=== PATIENT | male | born 1955 | race Two or more races ===

== ENCOUNTER 2021-10-12 08:04 | Inpatient (IN) | payer OTHER ==
[~2021-10-12] VITALS: Ht 172.7 cm; Wt 75.7 kg
[2021-10-12] VITALS (9 sets, daily range): BP systolic 110–138; BP diastolic 64–96
[2021-10-12] MEDS ORDERED: ONDANSETRON HCL/PF 4 MG/2 ML VIAL IVP ONE (08:30)
[2021-10-12] MEDS ORDERED: IV NS 0.9% 1,000 ML BAG IV ONE ×2 (08:30→09:30)
[2021-10-12] MEDS ORDERED: LIDOCAINE VISCOUS 2% UD 15 ML UDC MM ONE (08:30)
[2021-10-12] MEDS ORDERED: MAG HYDROX/AL HYDROX/SIMETH 30 ML UDC PO ONE (08:30)
[2021-10-12] MEDS ORDERED: FAMOTIDINE/PF INJ 20 MG/2 ML VIAL IV ONE ×2 (08:30→08:36)
[2021-10-12] MEDS ORDERED: MAG HYDROX/AL HYDROX/SIMETH 30 ML UDC ONE (08:35)
[2021-10-12] MEDS ORDERED: ONDANSETRON HCL/PF 4 MG/2 ML VIAL ONE (08:35)
[2021-10-12] MEDS ORDERED: LIDOCAINE VISCOUS 2% UD 15 ML UDC ONE (08:36)
[2021-10-12 08:53] LABS: BASOPHILS % (AUTO) 0.2 % (0.0-2.0); HEMATOCRIT 39 % (39-51); HEMOGLOBIN 12.9 g/dL (13.5-17.5); LYMPHOCYTES # (AUTO) 0.8 K/uL (0.8-4.8); LYMPHOCYTES % (AUTO) 10.1 % (20.0-44.0); MEAN CORPUSCULAR HGB CONC 34 g/dl (31.0-36.0); MEAN CORPUSCULAR VOLUME 96 fL (80-96); MONOCYTES # (AUTO) 0.7 K/uL (0.1-1.30); MONOCYTES % (AUTO) 9.1 % (2.0-12.0); NEUTROPHILS # (AUTO) 6.1 K/uL (1.8-8.9); NEUTROPHILS % (AUTO) 80.6 % (43.0-81.0); PLATELET COUNT (AUTO) 139 K/uL (150-450); RED BLOOD CELL COUNT(AUTO) 4.04 MIL/uL (4.5-6.0); WHITE BLOOD COUNT (AUTO) 7.6 K/uL (4.3-11.0)
[2021-10-12] MEDS ORDERED: IOHEXOL-350 100 ML VIAL IV ONE (08:59)
[2021-10-12] MEDS ORDERED: CT SWABBABLE VALVE TRANS SET 1 EA INFUS.SET MC ONE (08:59)
[2021-10-12] MEDS ORDERED: IV NS 0.9% 250 ML IV ONE (08:59)
[2021-10-12] MEDS ORDERED: DILTIAZEM HCL 50 MG IV IV ONE (09:00)
[2021-10-12] MEDS ORDERED: MORPHINE SULFATE INJ 2 MG/ML DISP.SYRIN IV ONE (09:00)
[2021-10-12] MEDS ORDERED: DILTIAZEM HCL 25 MG IV ONE (09:02)
[2021-10-12 09:03] LABS: CALCIUM, SERUM 8.1 mg/dL (8.5-10.1); CREATININE 1.5 mg/dL (0.6-1.3); POTASSIUM 4.3 mmol/L (3.5-5.1)
[2021-10-12] MEDS ORDERED: MORPHINE SULFATE INJ 4 MG/ML DISP.SYRIN ONE (09:03)
[2021-10-12 09:09] LABS: BILIRUBIN,DIRECT 0.2 mg/dL (0.0-0.2); BILIRUBIN,TOTAL 0.9 mg/dL (0.2-1.0); TOTAL PROTEIN, SERUM 7.2 g/dL (6.4-8.2)
[2021-10-12] MEDS ORDERED: ASPI-1420 PO (09:11)
[2021-10-12] MEDS ORDERED: GABA300C PO (09:11)
[2021-10-12] MEDS ORDERED: METO50TA16 PO (09:11)
[2021-10-12] MEDS ORDERED: ACAR50TA4 PO (09:11)
[2021-10-12] MEDS ORDERED: ALLO300T2 PO (09:11)
[2021-10-12] MEDS ORDERED: GLIM4TAB37 PO (09:11)
[2021-10-12] MEDS ORDERED: MULT-981 PO (09:11)
[2021-10-12] MEDS ORDERED: ATOR20TA PO (09:11)
[2021-10-12] MEDS ORDERED: LISI-768 PO (09:11)
[2021-10-12] MEDS ORDERED: ICOS1CAP PO (09:11)
[2021-10-12] MEDS ORDERED: SITA50TA PO (09:11)
[2021-10-12] MEDS ORDERED: METF-442 PO (09:11)
[2021-10-12] MEDS ORDERED: PIPERACILLIN /TAZOBACTAM 3.375 G in IV D5W 50 ML IV ONE (09:30)
[2021-10-12] MEDS ORDERED: Medication Not On Formulary EA (Icosapent Ethyl (Vascepa) 2 CAP) PO SCH (10:00)
[2021-10-12] MEDS ORDERED: ENOXAPARIN SODIUM 80 MG/0.8 ML DISP.SYRIN SQ ONE ×2 (10:00→10:46)
[2021-10-12] MEDS ORDERED: GABAPENTIN 300 MG CAPSULE ONE (10:42)
[2021-10-12] MEDS ORDERED: ASPIRIN 81 MG TAB.CHEW ONE (10:42)
[2021-10-12] MEDS: LISINOPRIL (5MG) 5 MG TABLET PO SCH (10:58)
[2021-10-12] MEDS: ACARBOSE 50 MG TABLET PO SCH ×3 (10:58→17:44)
[2021-10-12] MEDS: GLIMEPIRIDE 4 MG TABLET PO SCH (10:58)
[2021-10-12] MEDS: GABAPENTIN 300 MG CAPSULE PO SCH ×2 (10:58→17:43)
[2021-10-12] MEDS: ASPIRIN EC 81 MG TABLET.DR PO SCH (10:58)
[2021-10-12] MEDS ORDERED: DEXAMETHASONE SOD PHOSPHATE 10 MG/ML VIAL IV STA (11:26)
[2021-10-12] MEDS ORDERED: ACETAMINOPHEN 325 MG TABLET PO PRN (11:30)
[2021-10-12] MEDS ORDERED: ALBUTEROL SULFATE 8 GM HFA.AER.AD IH PRN (11:30)
[2021-10-12] MEDS ORDERED: methylPREDNISolone SOD SUCC 125 MG/2ML VIAL IV ONE (11:30)
[2021-10-12] MEDS ORDERED: ONDANSETRON HCL/PF 4 MG/2 ML VIAL IVP PRN (11:30)
[2021-10-12] MEDS ORDERED: DEXAMETHASONE SOD PHOSPHATE 4 MG/ML VIAL ONE (11:35)
[2021-10-12 11:45] LABS: ABG BASE EXCESS -9.5 mmol/L; ABG OXYGEN SATURATION 98.1 % (92.0-98.5); ABG PCO2 55.3 mmHg (35.0-45.0); ABG PH 7.165 (7.350-7.450); ABG PO2 144.7 mmHg (75.0-100.0); COHb 0.7 % (0.5-1.5); MetHb 0.4 % (0.0-1.5); SITE, ABG Right Radial; VENT MODE, BG non rebreather
[2021-10-12] MEDS ORDERED: DEXTROSE 50%-WATER 50 ML DISP.SYRIN IV PRN (12:00)
[2021-10-12] MEDS: BLOOD SUGAR DIAGNOSTIC 1 EACH STRIP VI SCH ×3 (12:10→22:16)
[2021-10-12] MEDS ORDERED: INSULIN REGULAR, HUMAN 100 UNIT/ML 10 ML VIAL ONE (12:12)
[2021-10-12] MEDS: INSULIN REGULAR, HUMAN 100 UNIT/ML 3 ML VIAL SQ PRN (12:12)
[2021-10-12 12:32] LABS: C-REACTIVE PROTEIN 11.8 mg/dL (0.0-0.9)
[2021-10-12 16:14] LABS: ABG BASE EXCESS -3.7 mmol/L; ABG OXYGEN SATURATION 96.8 % (92.0-98.5); ABG PCO2 42.7 mmHg (35.0-45.0); ABG PH 7.332 (7.350-7.450); ABG PO2 94.2 mmHg (75.0-100.0); AaDO2 141.9 mmHg; COHb 0.5 % (0.5-1.5); MetHb 0.3 % (0.0-1.5); SITE, ABG Right Radial
[2021-10-12] MEDS: *INSULIN REGULAR(HUMULIN R)HUM 100 UNIT/ML VIAL SQ PRN ×2 (18:12→22:15)
[2021-10-12] MEDS: ATORVASTATIN 10 MG TABLET PO SCH (21:54)
[2021-10-12] MEDS: ENOXAPARIN SODIUM 80 MG/0.8 ML DISP.SYRIN SQ SCH (21:55)
[2021-10-12] MEDS: IV NS 0.9% 1,000 ML IV PRN (22:30)
[2021-10-13] VITALS (18 sets, daily range): BP systolic 115–158; BP diastolic 61–100
[2021-10-13 05:40] LABS: BASOPHILS % (AUTO) 0.1 % (0.0-2.0); HEMATOCRIT 38 % (39-51); HEMOGLOBIN 12.9 g/dL (13.5-17.5); LYMPHOCYTES # (AUTO) 0.9 K/uL (0.8-4.8); LYMPHOCYTES % (AUTO) 15.5 % (20.0-44.0); MEAN CORPUSCULAR HGB CONC 34 g/dl (31.0-36.0); MEAN CORPUSCULAR VOLUME 95 fL (80-96); MONOCYTES # (AUTO) 0.4 K/uL (0.1-1.30); MONOCYTES % (AUTO) 6.8 % (2.0-12.0); NEUTROPHILS # (AUTO) 4.5 K/uL (1.8-8.9); NEUTROPHILS % (AUTO) 77.6 % (43.0-81.0); PLATELET COUNT (AUTO) 128 K/uL (150-450); RED BLOOD CELL COUNT(AUTO) 4.02 MIL/uL (4.5-6.0); WHITE BLOOD COUNT (AUTO) 5.8 K/uL (4.3-11.0)
[2021-10-13 06:05] LABS: ABG BASE EXCESS -3.3 mmol/L; ABG PCO2 37.5 mmHg (35.0-45.0); ABG PH 7.374 (7.350-7.450); AaDO2 53.8 mmHg; COHb 0.4 % (0.5-1.5); MetHb 0.3 % (0.0-1.5); O2Hb 97.3 % (94.0-97.0); SITE, ABG Right Radial
[2021-10-13 06:35] LABS: ALANINE AMINOTRANSFERASE 40 U/L (12-78); ALBUMIN 3.3 g/dL (3.4-5.0); ALKALINE PHOSPHATASE 66 U/L (46-116); ASPARTATE AMINOTRANSFERASE 36 U/L (15-37); BILIRUBIN,TOTAL 0.6 mg/dL (0.2-1.0); CALCIUM, SERUM 7.7 mg/dL (8.5-10.1); CARBON DIOXIDE 23 mmol/L (21-32); CHLORIDE 103 mmol/L (98-107); CREATININE 1.2 mg/dL (0.6-1.3); GLUCOSE 198 mg/dL (74-106); PHOSPHORUS 2.6 mg/dL (2.5-4.9); POTASSIUM 4.7 mmol/L (3.5-5.1); SODIUM SERUM 136 mmol/L (136-145); TOTAL PROTEIN, SERUM 6.4 g/dL (6.4-8.2); UREA NITROGEN, BLOOD 19 mg/dL (7-18)
[2021-10-13] MEDS: ACARBOSE 50 MG TABLET PO SCH ×3 (08:23→18:29)
[2021-10-13] MEDS: GABAPENTIN 300 MG CAPSULE PO SCH ×2 (08:36→18:29)
[2021-10-13] MEDS: DEXAMETHASONE SOD PHOSPHATE 4 MG/ML VIAL IV SCH (08:36)
[2021-10-13] MEDS: LISINOPRIL (5MG) 5 MG TABLET PO SCH (08:36)
[2021-10-13] MEDS: ALLOPURINOL 100 MG TABLET PO SCH (08:36)
[2021-10-13] MEDS: ASPIRIN EC 81 MG TABLET.DR PO SCH (08:36)
[2021-10-13] MEDS: LINAGLIPTIN 5 MG TABLET PO SCH (08:36)
[2021-10-13] MEDS: GLIMEPIRIDE 4 MG TABLET PO SCH (08:36)
[2021-10-13] MEDS: BLOOD SUGAR DIAGNOSTIC 1 EACH STRIP VI SCH ×4 (08:37→21:33)
[2021-10-13] MEDS: *INSULIN REGULAR(HUMULIN R)HUM 100 UNIT/ML VIAL SQ PRN ×2 (08:39→11:52)
[2021-10-13] MEDS: ENOXAPARIN SODIUM 80 MG/0.8 ML DISP.SYRIN SQ SCH ×2 (08:39→21:29)
[2021-10-13] MEDS: IV NS 0.9% 1,000 ML IV PRN ×2 (09:34→21:32)
[2021-10-13] MEDS: INSULIN REGULAR, HUMAN 100 UNIT/ML 3 ML VIAL SQ PRN (18:42)
[2021-10-13] MEDS: ATORVASTATIN 10 MG TABLET PO SCH (21:29)
[2021-10-14] VITALS: BP 134/79
[2021-10-14 04:00] VITALS: BP 136/76
[2021-10-14 06:25] LABS: BASOPHILS % (AUTO) 0.1 % (0.0-2.0); HEMATOCRIT 38 % (39-51); HEMOGLOBIN 12.9 g/dL (13.5-17.5); LYMPHOCYTES # (AUTO) 1.1 K/uL (0.8-4.8); LYMPHOCYTES % (AUTO) 9.9 % (20.0-44.0); MEAN CORPUSCULAR HGB CONC 34 g/dl (31.0-36.0); MEAN CORPUSCULAR VOLUME 94 fL (80-96); MONOCYTES # (AUTO) 0.6 K/uL (0.1-1.30); MONOCYTES % (AUTO) 5.8 % (2.0-12.0); NEUTROPHILS # (AUTO) 8.9 K/uL (1.8-8.9); NEUTROPHILS % (AUTO) 84.2 % (43.0-81.0); PLATELET COUNT (AUTO) 148 K/uL (150-450); RED BLOOD CELL COUNT(AUTO) 4.01 MIL/uL (4.5-6.0); WHITE BLOOD COUNT (AUTO) 10.6 K/uL (4.3-11.0)
[2021-10-14 06:59] LABS: CALCIUM, SERUM 7.8 mg/dL (8.5-10.1); CREATININE 1.2 mg/dL (0.6-1.3); POTASSIUM 4.5 mmol/L (3.5-5.1)
[2021-10-14 08:00] VITALS: BP 145/83
[2021-10-14] MEDS: BLOOD SUGAR DIAGNOSTIC 1 EACH STRIP VI SCH ×4 (08:21→22:06)
[2021-10-14] MEDS: ASPIRIN EC 81 MG TABLET.DR PO SCH (09:45)
[2021-10-14] MEDS: DEXAMETHASONE SOD PHOSPHATE 4 MG/ML VIAL IV SCH (09:45)
[2021-10-14] MEDS: LINAGLIPTIN 5 MG TABLET PO SCH (09:45)
[2021-10-14] MEDS: ALLOPURINOL 100 MG TABLET PO SCH (09:45)
[2021-10-14] MEDS: ACARBOSE 50 MG TABLET PO SCH ×3 (09:46→16:30)
[2021-10-14] MEDS: GLIMEPIRIDE 4 MG TABLET PO SCH (09:46)
[2021-10-14] MEDS: GABAPENTIN 300 MG CAPSULE PO SCH ×2 (09:46→16:31)
[2021-10-14] MEDS: LISINOPRIL (5MG) 5 MG TABLET PO SCH (09:46)
[2021-10-14] MEDS: ENOXAPARIN SODIUM 80 MG/0.8 ML DISP.SYRIN SQ SCH (09:49)
[2021-10-14] MEDS: *INSULIN REGULAR(HUMULIN R)HUM 100 UNIT/ML VIAL SQ PRN ×4 (09:50→22:08)
[2021-10-14 12:00] VITALS: BP 120/92
[2021-10-14 16:00] VITALS: BP 133/84
[2021-10-14] MEDS: METOPROLOL TARTRATE 25 MG TABLET PO SCH ×2 (16:31→22:06)
[2021-10-14 20:00] VITALS: BP 129/92
[2021-10-14] MEDS: ATORVASTATIN 10 MG TABLET PO SCH (22:06)
[2021-10-14] MEDS: IV NS 0.9% 1,000 ML IV PRN (22:07)
[2021-10-15] VITALS: BP 132/70
[2021-10-15 04:00] VITALS: BP 145/89
[2021-10-15] MEDS: IV NS 0.9% 1,000 ML IV PRN ×2 (06:36→18:02)
[2021-10-15 08:00] VITALS: BP 143/92
[2021-10-15] MEDS: GLIMEPIRIDE 4 MG TABLET PO SCH (08:00)
[2021-10-15] MEDS: DEXAMETHASONE SOD PHOSPHATE 4 MG/ML VIAL IV SCH (08:01)
[2021-10-15] MEDS: ASPIRIN EC 81 MG TABLET.DR PO SCH (08:01)
[2021-10-15] MEDS: LINAGLIPTIN 5 MG TABLET PO SCH (08:01)
[2021-10-15] MEDS: GABAPENTIN 300 MG CAPSULE PO SCH ×2 (08:02→16:58)
[2021-10-15] MEDS: METOPROLOL TARTRATE 25 MG TABLET PO SCH ×2 (08:02→20:37)
[2021-10-15] MEDS: LISINOPRIL (5MG) 5 MG TABLET PO SCH (08:02)
[2021-10-15] MEDS: ACARBOSE 50 MG TABLET PO SCH ×3 (08:03→16:58)
[2021-10-15] MEDS: ALLOPURINOL 100 MG TABLET PO SCH (08:13)
[2021-10-15] MEDS: BLOOD SUGAR DIAGNOSTIC 1 EACH STRIP VI SCH ×4 (08:13→21:18)
[2021-10-15] MEDS ORDERED: LACTULOSE 10 G/15 ML UDC (PYXIS) PO ONE (11:00)
[2021-10-15] MEDS: INSULIN REGULAR, HUMAN 100 UNIT/ML 3 ML VIAL SQ PRN ×2 (11:48→17:39)
[2021-10-15 12:00] VITALS: BP 141/86
[2021-10-15] MEDS: CEFTRIAXONE 1 G in IV D5W 50 ML IV SCH (12:08)
[2021-10-15] MEDS: AZITHROMYCIN 500 MG in IV D5W 250 ML IV SCH (13:10)
[2021-10-15 16:00] VITALS: BP 144/90
[2021-10-15 20:00] VITALS: BP 132/88
[2021-10-15] MEDS ORDERED: REMDESIVIR (CHARGED) 200 MG, *LOADING DOSE 1 EA in IV NS 0.9% 210 ML IV ONE (20:00)
[2021-10-15] MEDS: ENOXAPARIN SODIUM 80 MG/0.8 ML DISP.SYRIN SQ SCH (20:12)
[2021-10-15] MEDS: ATORVASTATIN 10 MG TABLET PO SCH (21:18)
[2021-10-15] MEDS: *INSULIN REGULAR(HUMULIN R)HUM 100 UNIT/ML VIAL SQ PRN (21:20)
[2021-10-16] VITALS: BP 129/75
[2021-10-16 04:00] VITALS: BP 140/77
[2021-10-16 06:25] LABS: HEMATOCRIT 34 % (39-51); HEMOGLOBIN 11.7 g/dL (13.5-17.5); LYMPHOCYTES # (AUTO) 0.6 K/uL (0.8-4.8); LYMPHOCYTES % (AUTO) 8.1 % (20.0-44.0); MEAN CORPUSCULAR HGB CONC 35 g/dl (31.0-36.0); MEAN CORPUSCULAR VOLUME 94 fL (80-96); MONOCYTES # (AUTO) 0.6 K/uL (0.1-1.30); NEUTROPHILS # (AUTO) 6.2 K/uL (1.8-8.9); NEUTROPHILS % (AUTO) 83.9 % (43.0-81.0); PLATELET COUNT (AUTO) 141 K/uL (150-450); RED BLOOD CELL COUNT(AUTO) 3.61 MIL/uL (4.5-6.0); WHITE BLOOD COUNT (AUTO) 7.4 K/uL (4.3-11.0)
[2021-10-16 06:41] LABS: ALBUMIN 3.1 g/dL (3.4-5.0); BILIRUBIN,DIRECT 0.4 mg/dL (0.0-0.2); CALCIUM, SERUM 7.5 mg/dL (8.5-10.1); POTASSIUM 4.3 mmol/L (3.5-5.1); TOTAL PROTEIN, SERUM 6.3 g/dL (6.4-8.2)
[2021-10-16] MEDS: BLOOD SUGAR DIAGNOSTIC 1 EACH STRIP VI SCH ×4 (07:43→23:01)
[2021-10-16 08:00] VITALS: BP 135/82
[2021-10-16] MEDS: GLIMEPIRIDE 4 MG TABLET PO SCH (08:06)
[2021-10-16] MEDS: LINAGLIPTIN 5 MG TABLET PO SCH (08:06)
[2021-10-16] MEDS: ACARBOSE 50 MG TABLET PO SCH ×3 (08:06→17:35)
[2021-10-16] MEDS: ASPIRIN EC 81 MG TABLET.DR PO SCH (08:07)
[2021-10-16] MEDS: DEXAMETHASONE SOD PHOSPHATE 4 MG/ML VIAL IV SCH (08:07)
[2021-10-16] MEDS: GABAPENTIN 300 MG CAPSULE PO SCH ×2 (08:07→17:35)
[2021-10-16] MEDS: ENOXAPARIN SODIUM 80 MG/0.8 ML DISP.SYRIN SQ SCH ×2 (08:15→22:03)
[2021-10-16] MEDS: METOPROLOL TARTRATE 25 MG TABLET PO SCH (08:16)
[2021-10-16] MEDS: LISINOPRIL (5MG) 5 MG TABLET PO SCH (08:16)
[2021-10-16] MEDS: ALLOPURINOL 100 MG TABLET PO SCH (08:17)
[2021-10-16 12:00] VITALS: BP 140/93
[2021-10-16] MEDS: CEFTRIAXONE 1 G in IV D5W 50 ML IV SCH (12:14)
[2021-10-16] MEDS: *INSULIN REGULAR(HUMULIN R)HUM 100 UNIT/ML VIAL SQ PRN ×3 (12:17→23:03)
[2021-10-16] MEDS: AZITHROMYCIN 500 MG in IV D5W 250 ML IV SCH (13:08)
[2021-10-16 16:00] VITALS: BP 134/78
[2021-10-16] MEDS: DILTIAZEM HCL 30 MG TABLET PO SCH (17:52)
[2021-10-16] MEDS: REMDESIVIR (CHARGED) 100 MG in IV NS 0.9% 100 ML IV SCH (19:41)
[2021-10-16 20:00] VITALS: BP 118/68
[2021-10-16] MEDS ORDERED: METOPROLOL TARTRATE 25 MG TABLET PO SCH (21:00)
[2021-10-16] MEDS: ATORVASTATIN 10 MG TABLET PO SCH (21:58)
[2021-10-16] MEDS: POLYETHYLENE GLYCOL 3350 17 GM POWD.PACK PO SCH (22:00)
[2021-10-17] VITALS (7 sets, daily range): BP systolic 105–127; BP diastolic 67–77
[2021-10-17] MEDS: DILTIAZEM HCL 30 MG TABLET PO SCH ×4 (00:45→17:57)
[2021-10-17] MEDS: BENZONATATE 100 MG CAPSULE PO PRN (05:35)
[2021-10-17 06:09] LABS: BASOPHILS % (AUTO) 0.1 % (0.0-2.0); HEMATOCRIT 36 % (39-51); HEMOGLOBIN 12.4 g/dL (13.5-17.5); LYMPHOCYTES # (AUTO) 0.5 K/uL (0.8-4.8); LYMPHOCYTES % (AUTO) 7.8 % (20.0-44.0); MEAN CORPUSCULAR HGB CONC 34 g/dl (31.0-36.0); MEAN CORPUSCULAR VOLUME 95 fL (80-96); MONOCYTES # (AUTO) 0.6 K/uL (0.1-1.30); MONOCYTES % (AUTO) 7.9 % (2.0-12.0); NEUTROPHILS # (AUTO) 5.9 K/uL (1.8-8.9); NEUTROPHILS % (AUTO) 84.2 % (43.0-81.0); PLATELET COUNT (AUTO) 158 K/uL (150-450); RED BLOOD CELL COUNT(AUTO) 3.83 MIL/uL (4.5-6.0)
[2021-10-17 06:35] LABS: ALBUMIN 2.8 g/dL (3.4-5.0); BILIRUBIN,DIRECT 0.3 mg/dL (0.0-0.2); TOTAL PROTEIN, SERUM 6.3 g/dL (6.4-8.2)
[2021-10-17 06:37] LABS: CALCIUM, SERUM 7.9 mg/dL (8.5-10.1); CREATININE 1.1 mg/dL (0.6-1.3); POTASSIUM 4.9 mmol/L (3.5-5.1)
[2021-10-17] MEDS: IV NS 0.9% 1,000 ML IV PRN (07:45)
[2021-10-17] MEDS: BLOOD SUGAR DIAGNOSTIC 1 EACH STRIP VI SCH ×4 (08:23→22:21)
[2021-10-17] MEDS: ALLOPURINOL 100 MG TABLET PO SCH (08:45)
[2021-10-17] MEDS: ACARBOSE 50 MG TABLET PO SCH ×3 (08:45→17:57)
[2021-10-17] MEDS: ASPIRIN EC 81 MG TABLET.DR PO SCH (08:45)
[2021-10-17] MEDS: LISINOPRIL (5MG) 5 MG TABLET PO SCH (08:45)
[2021-10-17] MEDS: DEXAMETHASONE SOD PHOSPHATE 4 MG/ML VIAL IV SCH (08:46)
[2021-10-17] MEDS: GABAPENTIN 300 MG CAPSULE PO SCH ×2 (08:46→17:56)
[2021-10-17] MEDS: LINAGLIPTIN 5 MG TABLET PO SCH (08:46)
[2021-10-17] MEDS: ENOXAPARIN SODIUM 80 MG/0.8 ML DISP.SYRIN SQ SCH ×2 (08:47→20:19)
[2021-10-17] MEDS: METOPROLOL TARTRATE 50 MG TABLET PO SCH ×2 (08:58→20:58)
[2021-10-17] MEDS: INSULIN REGULAR, HUMAN 100 UNIT/ML 3 ML VIAL SQ PRN ×3 (09:00→18:11)
[2021-10-17] MEDS: GLIMEPIRIDE 4 MG TABLET PO SCH (10:17)
[2021-10-17] MEDS: CEFTRIAXONE 1 G in IV D5W 50 ML IV SCH (11:37)
[2021-10-17] MEDS: AZITHROMYCIN 500 MG in IV D5W 250 ML IV SCH (12:08)
[2021-10-17] MEDS: REMDESIVIR (CHARGED) 100 MG in IV NS 0.9% 100 ML IV SCH (19:36)
[2021-10-17] MEDS: POLYETHYLENE GLYCOL 3350 17 GM POWD.PACK PO SCH (21:33)
[2021-10-17] MEDS: ATORVASTATIN 10 MG TABLET PO SCH (21:33)
[2021-10-17] MEDS: *INSULIN REGULAR(HUMULIN R)HUM 100 UNIT/ML VIAL SQ PRN (22:31)
[2021-10-18] VITALS: BP 127/72
[2021-10-18] MEDS: DILTIAZEM HCL 30 MG TABLET PO SCH ×4 (00:15→17:15)
[2021-10-18 04:00] VITALS: BP 133/85
[2021-10-18 06:47] LABS: BASOPHILS % (AUTO) 0.1 % (0.0-2.0); HEMATOCRIT 36 % (39-51); LYMPHOCYTES # (AUTO) 0.6 K/uL (0.8-4.8); LYMPHOCYTES % (AUTO) 7.3 % (20.0-44.0); MEAN CORPUSCULAR HGB CONC 34 g/dl (31.0-36.0); MEAN CORPUSCULAR VOLUME 93 fL (80-96); MONOCYTES # (AUTO) 0.6 K/uL (0.1-1.30); MONOCYTES % (AUTO) 7.3 % (2.0-12.0); NEUTROPHILS # (AUTO) 6.9 K/uL (1.8-8.9); NEUTROPHILS % (AUTO) 85.3 % (43.0-81.0); PLATELET COUNT (AUTO) 214 K/uL (150-450); RED BLOOD CELL COUNT(AUTO) 3.81 MIL/uL (4.5-6.0); WHITE BLOOD COUNT (AUTO) 8.1 K/uL (4.3-11.0)
[2021-10-18 07:16] LABS: ALBUMIN 2.9 g/dL (3.4-5.0); BILIRUBIN,DIRECT 0.4 mg/dL (0.0-0.2); BILIRUBIN,TOTAL 0.9 mg/dL (0.2-1.0); CALCIUM, SERUM 7.6 mg/dL (8.5-10.1); CREATININE 1.1 mg/dL (0.6-1.3); POTASSIUM 4.2 mmol/L (3.5-5.1); TOTAL PROTEIN, SERUM 6.2 g/dL (6.4-8.2)
[2021-10-18 08:00] VITALS: BP 129/90
[2021-10-18] MEDS: BLOOD SUGAR DIAGNOSTIC 1 EACH STRIP VI SCH ×4 (08:14→21:28)
[2021-10-18] MEDS: GABAPENTIN 300 MG CAPSULE PO SCH ×2 (08:32→17:15)
[2021-10-18] MEDS: LINAGLIPTIN 5 MG TABLET PO SCH (08:32)
[2021-10-18] MEDS: GLIMEPIRIDE 4 MG TABLET PO SCH (08:33)
[2021-10-18] MEDS: ALLOPURINOL 100 MG TABLET PO SCH (08:33)
[2021-10-18] MEDS: ACARBOSE 50 MG TABLET PO SCH ×3 (08:33→17:15)
[2021-10-18] MEDS: BENZONATATE 100 MG CAPSULE PO PRN ×2 (08:33→17:15)
[2021-10-18] MEDS: METOPROLOL TARTRATE 50 MG TABLET PO SCH ×2 (08:34→20:39)
[2021-10-18] MEDS: ASPIRIN EC 81 MG TABLET.DR PO SCH (08:34)
[2021-10-18] MEDS: LISINOPRIL (5MG) 5 MG TABLET PO SCH (08:34)
[2021-10-18] MEDS: DEXAMETHASONE SOD PHOSPHATE 4 MG/ML VIAL IV SCH (08:36)
[2021-10-18] MEDS: ENOXAPARIN SODIUM 80 MG/0.8 ML DISP.SYRIN SQ SCH ×2 (08:37→20:38)
[2021-10-18] MEDS: *INSULIN REGULAR(HUMULIN R)HUM 100 UNIT/ML VIAL SQ PRN ×4 (08:39→21:28)
[2021-10-18] MEDS: IV NS 0.9% 1,000 ML IV PRN (09:25)
[2021-10-18 12:00] VITALS: BP 130/87
[2021-10-18] MEDS: CEFTRIAXONE 1 G in IV D5W 50 ML IV SCH (12:43)
[2021-10-18] MEDS: AZITHROMYCIN 500 MG in IV D5W 250 ML IV SCH (13:44)
[2021-10-18 16:00] VITALS: BP 130/80
[2021-10-18] MEDS: REMDESIVIR (CHARGED) 100 MG in IV NS 0.9% 100 ML IV SCH (19:54)
[2021-10-18 20:00] VITALS: BP 110/69
[2021-10-18] MEDS: ATORVASTATIN 10 MG TABLET PO SCH (21:14)
[2021-10-18] MEDS: POLYETHYLENE GLYCOL 3350 17 GM POWD.PACK PO SCH (21:14)
[2021-10-19] VITALS: BP 120/71
[2021-10-19] MEDS: DILTIAZEM HCL 30 MG TABLET PO SCH ×4 (00:04→18:07)
[2021-10-19] MEDS: TEMAZEPAM 7.5 MG CAPSULE PO PRN (00:04)
[2021-10-19 04:00] VITALS: BP 122/73
[2021-10-19] MEDS: BLOOD SUGAR DIAGNOSTIC 1 EACH STRIP VI SCH ×4 (07:45→22:15)
[2021-10-19 08:00] VITALS: BP 126/78
[2021-10-19] MEDS: ALLOPURINOL 100 MG TABLET PO SCH (08:59)
[2021-10-19] MEDS: ACARBOSE 50 MG TABLET PO SCH ×3 (08:59→18:06)
[2021-10-19] MEDS: LINAGLIPTIN 5 MG TABLET PO SCH (08:59)
[2021-10-19] MEDS: GABAPENTIN 300 MG CAPSULE PO SCH ×2 (08:59→18:11)
[2021-10-19] MEDS: GLIMEPIRIDE 4 MG TABLET PO SCH (08:59)
[2021-10-19] MEDS: ASPIRIN EC 81 MG TABLET.DR PO SCH (08:59)
[2021-10-19] MEDS: LISINOPRIL (5MG) 5 MG TABLET PO SCH (09:00)
[2021-10-19] MEDS: METOPROLOL TARTRATE 50 MG TABLET PO SCH ×2 (09:00→20:20)
[2021-10-19] MEDS: DEXAMETHASONE SOD PHOSPHATE 10 MG/ML VIAL IV SCH (09:02)
[2021-10-19] MEDS: ENOXAPARIN SODIUM 80 MG/0.8 ML DISP.SYRIN SQ SCH ×2 (09:03→20:22)
[2021-10-19] MEDS: *INSULIN REGULAR(HUMULIN R)HUM 100 UNIT/ML VIAL SQ PRN ×4 (09:05→22:37)
[2021-10-19 09:39] LABS: BASOPHILS % (AUTO) 0.1 % (0.0-2.0); HEMATOCRIT 32 % (39-51); HEMOGLOBIN 10.8 g/dL (13.5-17.5); LYMPHOCYTES # (AUTO) 0.5 K/uL (0.8-4.8); LYMPHOCYTES % (AUTO) 6.5 % (20.0-44.0); MEAN CORPUSCULAR HGB CONC 34 g/dl (31.0-36.0); MEAN CORPUSCULAR VOLUME 94 fL (80-96); MONOCYTES # (AUTO) 0.6 K/uL (0.1-1.30); MONOCYTES % (AUTO) 7.6 % (2.0-12.0); NEUTROPHILS # (AUTO) 6.8 K/uL (1.8-8.9); NEUTROPHILS % (AUTO) 85.8 % (43.0-81.0); PLATELET COUNT (AUTO) 265 K/uL (150-450); RED BLOOD CELL COUNT(AUTO) 3.36 MIL/uL (4.5-6.0); WHITE BLOOD COUNT (AUTO) 7.9 K/uL (4.3-11.0)
[2021-10-19 10:23] LABS: ALBUMIN 2.7 g/dL (3.4-5.0); BILIRUBIN,DIRECT 0.2 mg/dL (0.0-0.2); BILIRUBIN,TOTAL 0.9 mg/dL (0.2-1.0); CALCIUM, SERUM 7.7 mg/dL (8.5-10.1); POTASSIUM 4.8 mmol/L (3.5-5.1); TOTAL PROTEIN, SERUM 5.9 g/dL (6.4-8.2)
[2021-10-19] MEDS: CEFTRIAXONE 1 G in IV D5W 50 ML IV SCH (11:19)
[2021-10-19 12:00] VITALS: BP 143/85
[2021-10-19] MEDS: AZITHROMYCIN 500 MG in IV D5W 250 ML IV SCH (12:43)
[2021-10-19 16:00] VITALS: BP 137/78
[2021-10-19 20:00] VITALS: BP 142/69
[2021-10-19] MEDS: REMDESIVIR (CHARGED) 100 MG in IV NS 0.9% 100 ML IV SCH (20:10)
[2021-10-19] MEDS: ATORVASTATIN 10 MG TABLET PO SCH (22:03)
[2021-10-19] MEDS: POLYETHYLENE GLYCOL 3350 17 GM POWD.PACK PO SCH (22:04)
[2021-10-20] VITALS: BP 129/75
[2021-10-20] MEDS: DILTIAZEM HCL 30 MG TABLET PO SCH ×4 (00:01→17:01)
[2021-10-20] MEDS: TEMAZEPAM 7.5 MG CAPSULE PO PRN (00:01)
[2021-10-20 04:00] VITALS: BP 119/76
[2021-10-20 07:22] LABS: BASOPHILS % (AUTO) 0.1 % (0.0-2.0); HEMATOCRIT 33 % (39-51); HEMOGLOBIN 11.5 g/dL (13.5-17.5); LYMPHOCYTES # (AUTO) 0.5 K/uL (0.8-4.8); LYMPHOCYTES % (AUTO) 5.9 % (20.0-44.0); MEAN CORPUSCULAR HGB CONC 35 g/dl (31.0-36.0); MEAN CORPUSCULAR VOLUME 93 fL (80-96); MONOCYTES # (AUTO) 0.6 K/uL (0.1-1.30); MONOCYTES % (AUTO) 6.3 % (2.0-12.0); NEUTROPHILS # (AUTO) 8.1 K/uL (1.8-8.9); NEUTROPHILS % (AUTO) 87.7 % (43.0-81.0); PLATELET COUNT (AUTO) 271 K/uL (150-450); WHITE BLOOD COUNT (AUTO) 9.3 K/uL (4.3-11.0)
[2021-10-20] MEDS: BLOOD SUGAR DIAGNOSTIC 1 EACH STRIP VI SCH ×4 (07:45→22:54)
[2021-10-20] MEDS: *INSULIN REGULAR(HUMULIN R)HUM 100 UNIT/ML VIAL SQ PRN (07:47)
[2021-10-20] MEDS: INSULIN REGULAR, HUMAN 100 UNIT/ML 3 ML VIAL SQ PRN ×4 (07:57→22:54)
[2021-10-20 08:00] VITALS: BP 141/83
[2021-10-20 08:25] LABS: CALCIUM, SERUM 8.4 mg/dL (8.5-10.1); CREATININE 1.1 mg/dL (0.6-1.3); POTASSIUM 4.4 mmol/L (3.5-5.1)
[2021-10-20] MEDS: LISINOPRIL (5MG) 5 MG TABLET PO SCH (08:43)
[2021-10-20] MEDS: GABAPENTIN 300 MG CAPSULE PO SCH ×2 (08:43→16:04)
[2021-10-20] MEDS: ACARBOSE 50 MG TABLET PO SCH ×3 (08:43→16:04)
[2021-10-20] MEDS: LINAGLIPTIN 5 MG TABLET PO SCH (08:43)
[2021-10-20] MEDS: ALLOPURINOL 100 MG TABLET PO SCH (08:43)
[2021-10-20] MEDS: ASPIRIN EC 81 MG TABLET.DR PO SCH (08:43)
[2021-10-20] MEDS: DEXAMETHASONE SOD PHOSPHATE 10 MG/ML VIAL IV SCH (08:43)
[2021-10-20] MEDS: GLIMEPIRIDE 4 MG TABLET PO SCH (08:43)
[2021-10-20] MEDS: ENOXAPARIN SODIUM 80 MG/0.8 ML DISP.SYRIN SQ SCH ×2 (08:44→21:38)
[2021-10-20] MEDS: METOPROLOL TARTRATE 50 MG TABLET PO SCH ×2 (08:44→21:41)
[2021-10-20 12:00] VITALS: BP 165/69
[2021-10-20 16:00] VITALS: BP 126/71
[2021-10-20 20:00] VITALS: BP 124/76
[2021-10-20] MEDS: ATORVASTATIN 10 MG TABLET PO SCH (21:38)
[2021-10-20] MEDS: POLYETHYLENE GLYCOL 3350 17 GM POWD.PACK PO SCH (21:41)
[2021-10-21] VITALS (7 sets, daily range): BP systolic 128–146; BP diastolic 70–88
[2021-10-21] MEDS: TEMAZEPAM 7.5 MG CAPSULE PO PRN (00:18)
[2021-10-21] MEDS: DILTIAZEM HCL 30 MG TABLET PO SCH ×4 (00:18→17:17)
[2021-10-21 06:32] LABS: BASOPHILS % (AUTO) 0.1 % (0.0-2.0); EOSINOPHILS % (AUTO) 0.1 % (0.0-6.0); HEMATOCRIT 37 % (39-51); HEMOGLOBIN 12.4 g/dL (13.5-17.5); LYMPHOCYTES # (AUTO) 0.6 K/uL (0.8-4.8); LYMPHOCYTES % (AUTO) 4.9 % (20.0-44.0); MEAN CORPUSCULAR HGB CONC 33 g/dl (31.0-36.0); MEAN CORPUSCULAR VOLUME 93 fL (80-96); MONOCYTES # (AUTO) 0.6 K/uL (0.1-1.30); MONOCYTES % (AUTO) 5.6 % (2.0-12.0); NEUTROPHILS # (AUTO) 10.1 K/uL (1.8-8.9); NEUTROPHILS % (AUTO) 89.3 % (43.0-81.0); PLATELET COUNT (AUTO) 297 K/uL (150-450); RED BLOOD CELL COUNT(AUTO) 3.98 MIL/uL (4.5-6.0); WHITE BLOOD COUNT (AUTO) 11.3 K/uL (4.3-11.0)
[2021-10-21 06:37] LABS: CALCIUM, SERUM 8.9 mg/dL (8.5-10.1); CREATININE 1.1 mg/dL (0.6-1.3); POTASSIUM 4.5 mmol/L (3.5-5.1)
[2021-10-21] MEDS: BLOOD SUGAR DIAGNOSTIC 1 EACH STRIP VI SCH ×3 (08:24→17:24)
[2021-10-21] MEDS: INSULIN REGULAR, HUMAN 100 UNIT/ML 3 ML VIAL SQ PRN ×3 (08:26→17:25)
[2021-10-21] MEDS: ENOXAPARIN SODIUM 80 MG/0.8 ML DISP.SYRIN SQ SCH (08:27)
[2021-10-21] MEDS: ACARBOSE 50 MG TABLET PO SCH ×3 (08:28→17:17)
[2021-10-21] MEDS: LISINOPRIL (5MG) 5 MG TABLET PO SCH (08:29)
[2021-10-21] MEDS: GABAPENTIN 300 MG CAPSULE PO SCH ×2 (08:29→17:17)
[2021-10-21] MEDS: GLIMEPIRIDE 4 MG TABLET PO SCH (08:29)
[2021-10-21] MEDS: ASPIRIN EC 81 MG TABLET.DR PO SCH (08:29)
[2021-10-21] MEDS: METOPROLOL TARTRATE 50 MG TABLET PO SCH (08:29)
[2021-10-21] MEDS: DEXAMETHASONE SOD PHOSPHATE 10 MG/ML VIAL IV SCH (08:29)
[2021-10-21] MEDS: ALLOPURINOL 100 MG TABLET PO SCH (08:29)
[2021-10-21] MEDS: LINAGLIPTIN 5 MG TABLET PO SCH (08:29)
[2021-10-21] MEDS ORDERED: PANTOPRAZOLE 40 MG/PACK PACK PO SCH (09:00)
[2021-10-21] MEDS ORDERED: DILT30TA14 PO (11:56)
[2021-10-21] MEDS ORDERED: METO50TA16 PO (11:56)
[2021-10-21] MEDS ORDERED: ALBU18HF2 IH (11:56)
[2021-10-21] MEDS ORDERED: BENZ-38 PO (11:56)
[2021-10-21] MEDS ORDERED: DEXA10VI2 PO (11:56)
[2021-10-21] MEDS ORDERED: PANT40SU2 PO (11:56)
[2021-10-21] MEDS ORDERED: APIX5TAB PO (12:06)
== END 2021-10-21 18:15 | disposition home or self-care (01) | DRG 177 ==
LOC: ER 08:19 → TRANSITION 10:52 → ICU 13:48 → TELE1 10-13 17:35
PROVIDERS: ADMIT Nurse Practitioner Acute Care; ATTEND Nurse Practitioner Acute Care
PROC: 5A09357 Assistance with Respiratory Ventilation, Less than 24 Consecutive Hours, Continuous Positive Airway Pressure (ICD-10-PCS; principal; 2021-10-12)
PROC: XW033E5 Introduction of Remdesivir Anti-infective into Peripheral Vein, Percutaneous Approach, New Technology Group 5 (ICD-10-PCS; 2021-10-12)
PROC: 05H933Z Insertion of Infusion Device into Right Brachial Vein, Percutaneous Approach (ICD-10-PCS; 2021-10-18)
DX: U07.1 COVID-19 (principal); J96.01 Acute respiratory failure with hypoxia; N17.0 Acute kidney failure with tubular necrosis; J12.82 Pneumonia due to coronavirus disease 2019; I82.220 Acute embolism and thrombosis of inferior vena cava; I82.221 Chronic embolism and thrombosis of inferior vena cava; J96.02 Acute respiratory failure with hypercapnia; E87.2 Acidosis; N40.0 Benign prostatic hyperplasia without lower urinary tract symptoms; Z79.84 Long term (current) use of oral hypoglycemic drugs; I48.91 Unspecified atrial fibrillation; I25.10 Atherosclerotic heart disease of native coronary artery without angina pectoris; E11.9 Type 2 diabetes mellitus without complications; E78.5 Hyperlipidemia, unspecified; Z79.899 Other long term (current) drug therapy; I10 Essential (primary) hypertension; Z79.82 Long term (current) use of aspirin; E66.9 Obesity, unspecified; Z68.29 Body mass index [BMI] 29.0-29.9, adult; M10.9 Gout, unspecified; K76.0 Fatty (change of) liver, not elsewhere classified; R91.1 Solitary pulmonary nodule; K52.9 Noninfective gastroenteritis and colitis, unspecified; I27.20 Pulmonary hypertension, unspecified; T38.0X5A Adverse effect of glucocorticoids and synthetic analogues, initial encounter; Y92.9 Unspecified place or not applicable
CPT/HCPCS: 36415; 36600; 71045-TC; 74018; 80048-TC; 80053-TC; 80076-TC; 82550-TC; 82728-TC; 82803-TC; 82962-TC; 83605-TC; 83615-TC; 83690-TC; 83735-TC; 83880; 84100-TC; 84484-TC; 85025-TC; 85378-TC; 85610-TC; 86140-TC; 87040-TC; 87081-TC; 93307-TC; 93970-TC; 94799-TC; A4216; A6403; G0378; J0456; J0696; J1100; J1650; J1815; J2270; J2405; J2543; J3490; J7030; J7040; J7050; J7060; Q9967; U0003